=== PATIENT | female | born 1970 | race Caucasian/White ===

== ENCOUNTER 2020-07-06 10:10 | Emergency (ER) | payer SELFPAY ==
[~2020-07-06] VITALS: Ht 157.5 cm; Wt 80.1 kg
--- NOTE | 2020-07-06 10:40 | NUR ---
PATIENT WALKED BACK FROM TRIAGE WITH CHIEF C/O SEVERE FLANK PAIN . PATIENT STARTED HAVING BLADDER SPASMS THIS MORNING WHILE GETTING READY FOR WORK. AFTER PATIENT GOT TO WORK SHE STARTED HAVING RIGHT FLANK PAIN THAT STARTED A DULL ACHE BUT HAS NOW BECOME A FULL STABBING ACHE THAT RADIATES TO HER GROIN. PATIENT STATES SHE FEELS LIKE SHE HAS "A FULL BLADDER BUT I CAN'T PEE." PATIENT APPEARS TO BE IN PAIN, BREATHING HEAVY AND GRIMACING WITH MOVEMENT. A&0X4, AMBULATED TO BATHROOM TO TRY AND LEAVE URINE SAMPLE.
--- NOTE | 2020-07-06 10:45 | NUR ---
URINE SAMPLE COLLECTED AND WALKED TO LAB, PATIENT TO X-RAY.
[2020-07-06 10:56] LABS: MICROSCOPIC INDICATED
--- NOTE | 2020-07-06 11:02 | NUR ---
DATA MANAGEMENT ASSOCIATE AT BEDSIDE FOR EXAM.
[2020-07-06] MEDS ORDERED: ONDANSETRON 2MG/ML, 2ML IVPush ONE (11:30)
[2020-07-06] MEDS ORDERED: KETOROLAC 30 MG/1 ML IVPush ONE (11:30)
[2020-07-06] MEDS ORDERED: KETOROLAC 30 MG/1 ML ONE (11:30)
[2020-07-06] MEDS ORDERED: HYDROmorphone 1 MG/ML, 1ML INJ IVPush PRN (11:30)
[2020-07-06] MEDS ORDERED: ONDANSETRON 2MG/ML, 2ML ONE (11:30)
[2020-07-06 11:37] LABS: BASOPHILS % (AUTO) 1 % (0-1); EOSINOPHILS % (AUTO) 1 % (1-7); LYMPHOCYTES % (AUTO) 10 % (22-44); MEAN CORPUSCULAR HGB CONC 33.1 g/dL (32.4-35.8); MEAN PLATELET VOLUME 9.1 fL (7.4-10.4); MONOCYTES % (AUTO) 3 % (2-9); NEUTROPHILS % (AUTO) 85 % (42-75); PLATELET COUNT 185 x10^3/uL (130-400); RED BLOOD COUNT 4.54 x10^6/uL (3.82-5.3); RED CELL DISTRIBUTION WIDTH 12.7 % (9.6-15.2)
[2020-07-06 11:49] LABS: ANION GAP 6 mmol/L (5-15); CHLORIDE 107 mmol/L (98-107)
[2020-07-06 11:50] LABS: CALCIUM 9.4 mg/dL (8.5-10.1)
[2020-07-06] MEDS ORDERED: HYDROmorphone 1 MG/ML, 1ML INJ ONE (11:51)
[2020-07-06 11:54] LABS: ALANINE AMINOTRANSFERASE 19 U/L (12-78); ALKALINE PHOSPHATASE 116 U/L (45-117); BILIRUBIN,TOTAL 0.8 mg/dL (0.2-1.0); CREATININE 0.87 mg/dL (0.55-1.02); TOTAL PROTEIN 7.3 g/dL (6.4-8.2)
[2020-07-06] MEDS ORDERED: KETOROLAC 30 MG/1 ML IV ONE (12:00)
[2020-07-06 12:14] VITALS: BP 128/75
[2020-07-06 12:24] LABS: MD SCAN
--- NOTE | 2020-07-06 13:02 | NUR ---
Patient given discharge instructions and prescription and they have confirmed that they understand the instructions. Patient ambulatory with steady gait from ED.
== END 2020-07-06 13:03 | disposition home or self-care (01) ==
LOC: ED 12:50
DX: N13.2 Hydronephrosis with renal and ureteral calculous obstruction (principal); R11.2 Nausea with vomiting, unspecified; Z90.710 Acquired absence of both cervix and uterus
CPT/HCPCS: 36415; 74018; 76770; 80053; 81001; 85025; 96374; 96375; 99285; J1170; J1885; J2405